=== PATIENT | female | born 1965 | race Caucasian/White ===

== ENCOUNTER 2021-07-31 07:37 | Emergency (ER) | payer OTHER ==
[~2021-07-31] VITALS: Ht 160 cm; Wt 114.3 kg
[~2021-07-31 07:37] MED LIST: AVAPRO300 MG; KETO10TA2 PO; LAMICTAL100 M1; LIPITOR40 MG; ORPH100T PO; SYNTHROID50 MCG; TOPROL XL100 M1
[2021-07-31] MEDS ORDERED: WELLBUTRIN SR100 MG (07:48)
== END 2021-07-31 11:12 | disposition home or self-care (01) ==
LOC: ER 07:37
DX: M79.641 Pain in right hand (principal); M79.642 Pain in left hand